=== PATIENT | female | born 1990 | race Two or more races ===

== ENCOUNTER 2016-04-16 19:03 | Emergency (ER) | payer MEDICAID ==
[~2016-04-16] VITALS: Ht 162.6 cm; Wt 89.8 kg
[2016-04-16 19:18] VITALS: BP 122/86
[2016-04-16 20:05] LABS: Basophils # (auto) 0 uL; Basophils % (auto) 0.3 % (0.0-2.0); Eosinophils # (auto) 0.3 uL; Eosinophils % (auto) 3.4 % (0.0-7.0); Hematocrit 32.6 % (36.0-46.0); Hemoglobin 10.8 g/dL (12.2-16.2); Lymphocytes # (auto) 1.7 uL; Lymphocytes % (auto) 19.5 % (10.0-50.0); Mean Corpuscular Hemoglobin 29.2 pg (28.0-32.0); Mean Corpuscular Hgb Conc. 33.1 g/dL (32.0-36.0); Mean Corpuscular Volume 88.3 fL (80.0-100.0); Mean Platelet Volume 7.4 fL (7.4-10.4); Monocytes # (auto) 0.4 uL; Neutrophils # (auto) 6.3 uL; Neutrophils % (auto) 71.8 % (37.0-80.0); Platelet Count (auto) 384 10^3/uL (140-450); Red Cell Distribution Width 13.4 % (11.6-16.0); White Blood Cell 8.8 10^3/uL (4.4-10.8)
[2016-04-16 20:18] LABS: INR 0.92 (0.9-1.15); Prothrombin Time 9.5 sec (9.37-12.3)
[2016-04-16 20:27] LABS: Albumin 2.7 g/dL (3.4-5.0); BUN/Creatinine Ratio 21.3; Bilirubin, Total 0.1 mg/dL (0.2-1.0); Calcium 8.7 mg/dL (8.5-10.1); Potassium 3.5 mmol/L (3.5-5.1); Total Protein 6.9 g/dL (6.4-8.2)
== END 2016-04-17 01:46 | disposition left against medical advice (07) ==
LOC: ER 19:06
DX: M79.604 Pain in right leg (principal); Z53.21 Procedure and treatment not carried out due to patient leaving prior to being seen by health care provider
CPT/HCPCS: 36415; 80053; 81025; 85025; 85610; 93971

== ENCOUNTER 2019-04-04 18:56 | Emergency (ER) | payer OTHER ==
[~2019-04-04] VITALS: Ht 162.6 cm; Wt 85.3 kg
[2019-04-04 19:28] VITALS: BP 115/90
[2019-04-04 23:01] LABS: Urine Bacteria NONE SEEN /hpf (None Seen); Urine Blood Negative /uL (Negative); Urine Mucus FEW (None Seen); Urine Specific Gravity 1.033 (1.001-1.035); Urine WBC 3 /hpf (0 - 5)
== END 2019-04-04 23:33 | disposition left against medical advice (07) ==
LOC: ER 18:56
DX: R30.0 Dysuria (principal); J02.9 Acute pharyngitis, unspecified; Z53.21 Procedure and treatment not carried out due to patient leaving prior to being seen by health care provider
CPT/HCPCS: 81001; 81025